=== PATIENT | female | born 1980 ===

== ENCOUNTER 2019-09-15 03:07 | Observation (INO) | payer OTHER ==
[2019-09-15 03:28] LABS: Bilirubin,Urine NEG (Negative); Blood,Urine NEG (Negative); Color,Urine Straw (Yellow); Mucus,Urine FEW /HPF; Protein,Urine <15 mg/dL mg/dL (Negative); Urobilinogen,Urine < 2.0 mg/dL (<2.0); WBC,Urine < 1.0 /HPF (0.0-6.0)
[2019-09-15 03:31] LABS: HCG Qualitative,Urine Negative (Negative)
[2019-09-15 04:05] LABS: Basophils # (Auto) 0.1 K/mm3 (0.0-0.1); Eosinophils # (Auto) 0.3 K/mm3 (0.0-0.4); Eosinophils % (Auto) 2.4 % (0.0-4.3); Lymphocytes # (Auto) 1.3 K/mm3 (1.2-5.4); Lymphocytes % (Auto) 10.9 % (13.4-35.0); Mean Corpuscular HGB Conc 28 % (30-34); Monocytes # (Auto) 0.5 K/mm3 (0.0-0.8); Monocytes % (Auto) 4.3 % (0.0-7.3); Platelet Count 430 K/mm3 (140-440); Red Blood Count 3.79 M/mm3 (3.65-5.03)
[2019-09-15 04:08] LABS: Hematocrit 21.9 % (30.3-42.9); Mean Corpuscular Volume 58 fl (79-97); Red Cell Distribution Width 23.8 % (13.2-15.2)
[2019-09-15 04:30] LABS: Alanine Aminotransferase 9 units/L (7-56); Albumin 4.5 g/dL (3.9-5); BUN/Creatinine Ratio 23; Blood Urea Nitrogen 7 mg/dL (7-17); Calcium 8.7 mg/dL (8.4-10.2); Hemolysis Index 0
[2019-09-15] MEDS ORDERED: ACETAMINOPHEN 325 MG TAB PO ONE (05:28)
[2019-09-15] MEDS ORDERED: ACETAMINOPHEN 325 MG TAB ONE (05:30)
[2019-09-15] MEDS ORDERED: SODIUM CHLORIDE 0.9% 1000 ML 1,000 ML IV ONE (07:30)
[2019-09-15] MEDS ORDERED: MORPHINE 4 MG/1 ML INJ IV ONE (07:35)
[2019-09-15] MEDS ORDERED: ONDANSETRON 4 MG/2 ML INJ IV ONE (07:35)
--- NOTE | 2019-09-15 07:37 | Event Note ---
ED Screening Note ED Screening Note: co diffuse abd pain moaning hx diverticulitis no home meds no etoh/cig/drugs no surgeries no pcp hgb 6 denies blood in stool lmp 2/15 preg neg This initial assessment/diagnostic orders/clinical plan/treatment(s) is/are subject to change based on patients health status, clinical progression and re- assessment by fellow clinical providers in the ED. Further treatment and workup at subsequent clinical providers discretion. Patient/guardian urged not to elope from the ED as their condition may be serious if not clinically assessed and managed. Initial orders include: 1L NS morphine/zofran CT Type stool for occult blood follow VS
[2019-09-15] MEDS ORDERED: SODIUM CHLORIDE 0.9% 500 ML 500 ML IV ONE (07:43)
--- NOTE | 2019-09-15 07:44 | Emergency Department Report ---
ED Abdominal Pain HPI - General Chief Complaint: Abdominal Pain Stated Complaint: ABD PAIN Time Seen by Provider: 09/15/19 07:13 Source: patient Mode of arrival: Ambulatory Limitations: No Limitations - History of Present Illness Severity scale (0 -10): 8 - Related Data Allergies Allergy/AdvReac Type Severity Reaction Status Date / Time No Known Allergies Allergy Unverified 09/15/19 03:13 ED Review of Systems ROS: Stated complaint: ABD PAIN Other details as noted in HPI ED Past Medical Hx - Past Medical History Previous Medical History?: No - Surgical History Past Surgical History?: No - Social History Smoking Status: Never Smoker Substance Use Type: None ED Physical Exam - General Limitations: No Limitations ED Course Vital Signs 09/15/19 03:10 Temperature 98.2 F Pulse Rate 83 Respiratory 18 Rate Blood Pressure 122/67 O2 Sat by Pulse 100 Oximetry ED Medical Decision Making - Lab Data Result diagrams: 09/15/19 03:28 09/15/19 03:28 Critical care attestation.: If time is entered above; I have spent that time in minutes in the direct care of this critically ill patient, excluding procedure time. ED Disposition Condition: Stable Instructions: Abdominal Pain (ED) Referrals: DULCE SANON MD [Primary Care Provider] - 3-5 Days
--- NOTE | 2019-09-15 07:46 | Event Note ---
Date: 09/15/19 no bed in main ER - 3 assignments closed pt to stay in [facility] for work up and blood transfusion per Charge Nurse
--- NOTE | 2019-09-15 09:17 | Cat Scan Report ---
CT ABDOMEN AND PELVIS WITHOUT CONTRAST HISTORY: Severe abdominal pain. COMPARISON: No relevant comparison imaging. TECHNIQUE: Routine abdominal and pelvic CT exam performed . All CT scans at this location are perform ed using CT dose reduction for ALARA by means of automated exposure control. FINDINGS: CT ABDOMEN: Lung Bases: No significant abnormality. Liver: No significant abnormality. Biliary: No significant abnormality. Spleen: No significant abnormality. Unenlarged. Pancreas: No significant abnormality. Adrenals: No significant abnormality. Kidneys: No significant abnormality. No urinary calculus. Lymphatics: No lymphadenopathy. Vasculature: No significant abnormality. Bowel/Peritoneum: Nonobstructive bowel pattern.Diverticulosis of the descending colon and proximal si gmoid colon. Stranding of the left mesocolon along with mild fluid in the left paracolic gutter and t hickening of the lateroconal fascia and the left renal fascia. The involved segment of colon measures at least 8 cm. No extraluminal air or abscess. No pneumoperitoneum. The appendix is normal. CT PELVIC: : An enlarged fibroid uterus measures approximately 16 cm in length by 10.5 cm AP dimension by 13.5 cm transverse dimension. There is suggestion of a 7-8 cm submucosal fibroid. The ovaries are normal. A 1.9 cm follicle of the left ovary. No adnexal mass or free fluid. Lymphatics: No lymphadenopathy. Osseous Structures: No aggressive appearing osseous lesions. Additional Findings: None IMPRESSION: 1. Acute diverticulitis involving the mid descending colon. No signs of perforation or abscess. 2. Enlarged fibroid uterus with a dominant 7 to 8 cm submucosal fibroid. Signer Name: Dez Metzger MD Signed: 09/15/2019 9:12 AM Workstation Name: [id number]
[2019-09-15] MEDS ORDERED: HYDROmorphone 1 MG/1 ML INJ IV STA (09:31)
[2019-09-15] MEDS ORDERED: SODIUM CHLORIDE 0.9% 1000 ML IV SOLN IV ONE (09:31)
[2019-09-15] MEDS ORDERED: levoFLOXacin 500 MG TAB PO ONE (09:36)
--- NOTE | 2019-09-15 09:36 | Emergency Department Report ---
ED General Adult HPI - General Chief complaint: Abdominal Pain Stated complaint: ABD PAIN Time Seen by Provider: 09/15/19 07:13 Source: patient, RN notes reviewed Mode of arrival: Stretcher Limitations: Language Barrier - History of Present Illness Initial comments: monitoring and evaluation advisor: [id number] The patient is a pleasant 39-year-old female. She is not known to myself previously. She reports a history of possible diverticulitis. She does not have a primary care doctor. She does not have a knuckle strap sewer. She presents to the ER with a complaint of nontraumatic left-sided abdominal pain. Her pain is sharp, and increases with palpation and decreases with rest. Positive chills, and bony aches. Patient fever. Mild headache. No neck pain. No vomiting. No chest pain. Positive shortness of breath. Positive dizziness. Positive lightheadedness. Positive heavy menstruation, chronically, although she is not menstruating currently. There is no complaint of hematemesis and/or bright red blood per rectum. -: Gradual, days(s) Location: abdomen Severity scale (0 -10): 7 Quality: other Consistency: other Improves with: other Worsens with: other Associated Symptoms: other - Related Data Allergies Allergy/AdvReac Type Severity Reaction Status Date / Time No Known Allergies Allergy Unverified 09/15/19 03:13 ED Review of Systems ROS: Stated complaint: ABD PAIN Other details as noted in HPI Constitutional: chills, malaise, weakness Respiratory: shortness of breath Cardiovascular: other Gastrointestinal: abdominal pain, diarrhea Genitourinary: abnormal menses. denies: dysuria Musculoskeletal: arthralgia, myalgia Neurological: weakness ED Past Medical Hx - Past Medical History Previous Medical History?: No - Surgical History Past Surgical History?: No - Social History Smoking Status: Never Smoker Substance Use Type: None ED Physical Exam - General Limitations: Language Barrier General appearance: alert, in no apparent distress - Head Head exam: Present: atraumatic, normocephalic - Eye Eye exam: Present: normal appearance, EOMI, other (Pallor of the bilateral conjunctiva are appreciated). Absent: nystagmus - ENT ENT exam: Present: normal exam, normal orophraynx, mucous membranes moist, normal external ear exam - Neck Neck exam: Present: normal inspection, full ROM. Absent: tenderness, meningismus - Respiratory Respiratory exam: Present: normal lung sounds bilaterally. Absent: respiratory distress - Cardiovascular Cardiovascular Exam: Present: regular rate, normal rhythm, normal heart sounds. Absent: bradycardia, tachycardia, irregular rhythm, systolic murmur, diastolic murmur, rubs, gallop - GI/Abdominal GI/Abdominal exam: Present: soft, tenderness, other (There is diffuse left-sided abdominal tenderness). Absent: distended, guarding, rebound, rigid, pulsatile mass - Extremities Exam Extremities exam: Present: normal inspection, full ROM, other (2+ pulses noted in the bilateral upper and lower extremities. There is no palpable cord. negative Homans sign. Muscular compartments are soft. The pelvis is stable.). Absent: pedal edema, calf tenderness - Back Exam Back exam: Present: normal inspection, CVA tenderness (R). Absent: tenderness, paraspinal tenderness, vertebral tenderness - Neurological Exam Neurological exam: Present: alert, other (There is no facial droop. The tongue is midline. The extraocular movements are intact bilaterally. There is 5 out of 5 strength in 4 extremities. Sensation is intact to light touch in 4 extremities) - Psychiatric Psychiatric exam: Present: anxious - Skin Skin exam: Present: warm, dry, intact, normal color. Absent: rash ED Course Vital Signs 09/15/19 09/15/19 09/15/19 03:10 08:57 09:00 Temperature 98.2 F Pulse Rate 83 83 Respiratory 18 22 28 H Rate Blood Pressure 122/67 117/61 Blood Pressure 110/64 [Left] O2 Sat by Pulse 100 100 Oximetry ED Medical Decision Making - Lab Data Result diagrams: 09/15/19 03:28 09/15/19 03:28 Vital Signs 09/15/19 09/15/19 09/15/19 03:10 08:57 09:00 Temperature 98.2 F Pulse Rate 83 83 Respiratory 18 22 28 H Rate Blood Pressure 122/67 117/61 Blood Pressure 110/64 [Left] O2 Sat by Pulse 100 100 Oximetry Lab Results 09/15/19 09/15/19 09/15/19 Range/Units 03:00 03:28 03:28 WBC 12.0 H (4.5-11.0) K/mm3 RBC 3.79 (3.65-5.03) M/mm3 Hgb 6.0 L (10.1-14.3) gm/dl Hct 21.9 L (30.3-42.9) % MCV 58 L (79-97) fl MCH 16 L (28-32) pg MCHC 28 L (30-34) % RDW 23.8 H (13.2-15.2) % Plt Count 430 (140-440) K/mm3 Lymph % (Auto) 10.9 L (13.4-35.0) % [place] % (Auto) 4.3 (0.0-7.3) % Eos % (Auto) 2.4 (0.0-4.3) % Baso % (Auto) 1.0 (0.0-1.8) % Lymph # 1.3 (1.2-5.4) K/mm3 [place] # 0.5 (0.0-0.8) K/mm3 Eos # 0.3 (0.0-0.4) K/mm3 Baso # 0.1 (0.0-0.1) K/mm3 Seg Neutrophils % 81.4 H (40.0-70.0) % Seg Neutrophils # 9.8 H (1.8-7.7) K/mm3 Sodium 138 (137-145) mmol/L Potassium 4.0 (3.6-5.0) mmol/L Chloride 102.7 (98-107) mmol/L Carbon Dioxide 20 L (22-30) mmol/L Anion Gap 19 mmol/L BUN 7 (7-17) mg/dL Creatinine 0.3 L (0.7-1.2) mg/dL Estimated GFR > 60 ml/min BUN/Creatinine Ratio 23 % Glucose 128 H (65-100) mg/dL Calcium 8.7 (8.4-10.2) mg/dL Magnesium (1.7-2.3) mg/dL Total Bilirubin 0.70 (0.1-1.2) mg/dL AST 15 (5-40) units/L ALT 9 (7-56) units/L Alkaline Phosphatase 83 (35-129) units/L Total Creatine Kinase (30-135) units/L Total Protein 7.2 (6.3-8.2) g/dL Albumin 4.5 (3.9-5) g/dL Albumin/Globulin Ratio 1.7 % Urine Color Straw (Yellow) Urine Turbidity Clear (Clear) Urine pH 6.0 (5.0-7.0) Ur Specific [place] 1.011 (1.003-1.030) Urine Protein <15 mg/dl (Negative) mg/dL Urine Glucose (UA) Neg (Negative) mg/dL Urine Ketones Neg (Negative) mg/dL Urine Blood Neg (Negative) Urine Nitrite Neg (Negative) Urine Bilirubin Neg (Negative) Urine Urobilinogen < 2.0 (<2.0) mg/dL Ur Leukocyte Esterase Neg (Negative) Urine WBC (Auto) < 1.0 (0.0-6.0) /HPF Urine RBC (Auto) 1.0 (0.0-6.0) /HPF U Epithel Cells (Auto) 1.0 (0-13.0) /HPF Urine Mucus Few /HPF Urine HCG, Qual Negative (Negative) Blood Type Antibody Screen Crossmatch 09/15/19 09/15/19 Range/Units 08:00 09:36 WBC (4.5-11.0) K/mm3 RBC (3.65-5.03) M/mm3 Hgb (10.1-14.3) gm/dl Hct (30.3-42.9) % MCV (79-97) fl MCH (28-32) pg MCHC (30-34) % RDW (13.2-15.2) % Plt Count (140-440) K/mm3 Lymph % (Auto) (13.4-35.0) % [place] % (Auto) (0.0-7.3) % Eos % (Auto) (0.0-4.3) % Baso % (Auto) (0.0-1.8) % Lymph # (1.2-5.4) K/mm3 [place] # (0.0-0.8) K/mm3 Eos # (0.0-0.4) K/mm3 Baso # (0.0-0.1) K/mm3 Seg Neutrophils % (40.0-70.0) % Seg Neutrophils # (1.8-7.7) K/mm3 Sodium (137-145) mmol/L Potassium (3.6-5.0) mmol/L Chloride (98-107) mmol/L Carbon Dioxide (22-30) mmol/L Anion Gap mmol/L BUN (7-17) mg/dL Creatinine (0.7-1.2) mg/dL Estimated GFR ml/min BUN/Creatinine Ratio % Glucose (65-100) mg/dL Calcium (8.4-10.2) mg/dL Magnesium 2.20 (1.7-2.3) mg/dL Total Bilirubin (0.1-1.2) mg/dL AST (5-40) units/L ALT (7-56) units/L Alkaline Phosphatase (35-129) units/L Total Creatine Kinase 23 L (30-135) units/L Total Protein (6.3-8.2) g/dL Albumin (3.9-5) g/dL Albumin/Globulin Ratio % Urine Color (Yellow) Urine Turbidity (Clear) Urine pH (5.0-7.0) Ur Specific [place] (1.003-1.030) Urine Protein (Negative) mg/dL Urine Glucose (UA) (Negative) mg/dL Urine Ketones (Negative) mg/dL Urine Blood (Negative) Urine Nitrite (Negative) Urine Bilirubin (Negative) Urine Urobilinogen (<2.0) mg/dL Ur Leukocyte Esterase (Negative) Urine WBC (Auto) (0.0-6.0) /HPF Urine RBC (Auto) (0.0-6.0) /HPF U Epithel Cells (Auto) (0-13.0) /HPF Urine Mucus /HPF Urine HCG, Qual (Negative) Blood Type O POSITIVE Antibody Screen Negative Crossmatch See Detail - EKG Data -: EKG Interpreted by Ca EKG shows normal: sinus rhythm Rate: normal - EKG Data When compared to previous EKG there are: previous EKG unavailable 09/15/19 10:06 Sinus rhythm, 86 bpm, left axis deviation, left anterior fascicular block, low voltage, motion artifact, QTC 445 ms. No prior for comparison. Not a STEMI. - Radiology Data Radiology results: report reviewed, image reviewed Print Report Referring Physician: AUSTIN BROWN Patient Name: JOANNE GALLOWAY Date of : 1980 Sex: Female Report Date: 2019-09-15 Report Status: Finalized Findings [facility] [address] [place] [address] Cat Scan Report Signed Patient: JOANNE GALLOWAY MR#: [id number] : 1980 Acct:[id number] Age/Sex: 39 / F ADM Date: 09/15/19 Loc: ED Attending Dr: Ordering Physician: AUSTIN BROWN Date of Service: 09/15/19 Procedure(s): CT abdomen pelvis wo con Accession Number(s): [id number] cc: AUSTIN BROWN CT ABDOMEN AND PELVIS WITHOUT CONTRAST HISTORY: Severe abdominal pain. COMPARISON: No relevant comparison imaging. TECHNIQUE: Routine abdominal and pelvic CT exam performed . All CT scans at this location are performed using CT dose reduction for ALARA by means of automated exposure control. FINDINGS: CT ABDOMEN: Lung Bases: No significant abnormality. Liver: No significant abnormality. Biliary: No significant abnormality. Spleen: No significant abnormality. Unenlarged. Pancreas: No significant abnormality. Adre nals: No significant abnormality. Kidneys: No significant abnormality. No urinary calculus. Lymphatics: No lymphadenopathy. Vasculature: No significant abnormality. Bowel/Peritoneum: Nonobstructive bowel pattern.Diverticulosis of the descending colon and proximal sigmoid colon. Stranding of the left mesocolon along with mild fluid in the left paracolic gutter and thickening of the lateroconal fascia and the left renal fascia. The involved segment of colon measures at least 8 cm. No extraluminal air or abscess. No pneumoperitoneum. The appendix is normal. CT PELVIC: : An enlarged fibroid uterus measures approximately 16 cm in length by 10.5 cm AP dimension by 13.5 cm transverse dimension. There is suggestion of a 7-8 cm submucosal fibroid. The ovaries are normal. A 1.9 cm follicle of the left ovary. No adnexal mass or free fluid. Lymphatics: No lymphadenopathy. Osseous Structures: No aggressive appearing osseous lesions. Additional Findings: None IMPRESSION: 1. Acute diverticulitis involving the mid descending colon. No signs of perforation or abscess. 2. Enlarged fibroid uterus with a dominant 7 to 8 cm submucosal fibroid. Signer Name: Christopher Dunn MD Signed: 09/15/2019 9:12 AM Workstation Name: [id number] Transcribed By: REF Dictated By: CHRISTOPHER DUNN MD Electronically Authenticated By: CHRISTOPHER DUNN MD Signed Date/Time: 09/15/19911 DD/ - Medical Decision Making Differential diagnosis, including but not limited to: Diverticulitis, urinary tract infection, perforated viscus, fibroids, symptomatic anemia Assessment and plan: 39-year-old female with heart rate greater than 90, white count of 12,000, tachypnea, CT scan abdomen pelvis showing uncomplicated diverticulitis, very tender, meets sepsis criteria. IV fluids, pain medication, antibiotics ordered. Also endorses secondary complaint of heavy menstruation, now resolved, not actively bleeding, found to have impressive microcytic anemia, which is symptomatic. Discussed these results with patient using a [place] monitoring and evaluation advisor. Patient is amenable to IV fluids, antibiotics, and packed red blood cell transfusion. She is amenable to hospitalization. Case is presented to hospital physician, and Dr. Edgard Mccray to admit Critical Care Time: Yes Critical care time in (mins) excluding proc time.: 35 Critical care attestation.: If time is entered above; I have spent that time in minutes in the direct care of this critically ill patient, excluding procedure time. ED Disposition Clinical Impression: SIRS (systemic inflammatory response syndrome), Symptomatic anemia, Acute abdominal pain Disposition: OP ADMIT IP TO THIS HOSP Is pt being admited?: Yes Condition: Serious Instructions: Abdominal Pain (ED) Referrals: DULCE SANON MD [Primary Care Provider] - 3-5 Days
[2019-09-15] MEDS: metroNIDAZOLE/NS 500 MG/100 ML 500 MG/100 ML BAG IV SCH ×4 (10:05→21:47)
[2019-09-15] MEDS ORDERED: SODIUM CHLORIDE 0.9% 500 ML 500 ML IV NR (10:31)
[2019-09-15] MEDS ORDERED: SODIUM CHLORIDE 0.9% 1000 ML 1,000 ML ONE (11:10)
[2019-09-15] MEDS ORDERED: SODIUM CHLORIDE 0.9% 500 ML 500 ML ONE (11:41)
--- NOTE | 2019-09-15 12:56 | History and Physical Report ---
History of Present Illness Date of examination: 09/15/19 Date of admission: 09/15/19 09:32 Chief complaint: LLQ abd pain History of present illness: Patient is 39-year-old with history of anemia and heavy menstrual bleeding. She presents with left lower abdominal pain for 2 days. Abdominal pain is dull, 8 out of 10 in intensity, located to left lower quadrant with no radiation. Patient denies nausea denies vomiting. She however complained of diarrhea with 3-4 stools daily over the past 2 days. Patient denies fever. Abdominal pain was getting worse therefore came to the emergency department for further evaluation. She was seen and evaluated in the Emergency Department. CT abdomen and pelvis done revealed acute diverticulitis. She was started on IV antibiotics. She was also found to have a hemoglobin of 6.0 and will be transfused PRBC. She denies any blood in the stool. She however states she has had heavy menstrual for many years. Will admit for further management. Past History Past Medical History: anemia Past Surgical History: No surgical history Social history: single, full code. denies: smoking, alcohol abuse Family history: no significant family history Medications and Allergies Allergies Allergy/AdvReac Type Severity Reaction Status Date / Time No Known Allergies Allergy Unverified 09/15/19 03:13 Active Meds: Active Medications Metronidazole (Flagyl 500 Mg/100 Ml) 500 mg in 100 mls @ 100 mls/hr IV NOW GILA; Protocol Last Admin: 09/15/19 10:27 Dose: 100 mls/hr Documented by: Dextrose/Sodium Chloride (D5/0.45ns) 1,000 mls @ 75 mls/hr IV DIRECT GILA Sodium Chloride (Nacl 0.9% 500 Ml) 500 mls @ 0 mls/hr IV ONCE NR Stop: 09/16/19 10:30 Review of Systems All systems: negative (No fever, no cough, no headache. All other systems reviewed and are negative) Exam - Physical Exam Narrative exam: GEN: Not in acute distress, lying in bed, HEENT: Normocephalic, atraumatic, Neck: supple, No JVD Lungs: Clear to auscultation ,no wheeze, heart;S1 and S2 reg, no murmurs, rubs or gallop Abd:soft, tender LLQ, no rebound tenderness, non distended, normal bowel sounds Ext: No edema, no clubbing, no cyanosis Neuro: Awake,alert, oriented X 3, moves all ext, no focal signs - Constitutional Vitals: Temp Pulse Resp BP Pulse Ox 99.8 F H 85 21 106/57 100 09/15/19 12:03 09/15/19 12:03 09/15/19 12:03 09/15/19 12:03 09/15/19 12:03 Results - Labs CBC & Chem 7: 09/16/19 05:13 09/16/19 05:13 Labs: Abnormal lab results 09/15/19 09/15/19 09/15/19 Range/Units 03:28 03:28 08:00 WBC 12.0 H (4.5-11.0) K/mm3 Hgb 6.0 L (10.1-14.3) gm/dl Hct 21.9 L (30.3-42.9) % MCV 58 L (79-97) fl MCH 16 L (28-32) pg MCHC 28 L (30-34) % RDW 23.8 H (13.2-15.2) % Lymph % (Auto) 10.9 L (13.4-35.0) % Seg Neutrophils % 81.4 H (40.0-70.0) % Seg Neutrophils # 9.8 H (1.8-7.7) K/mm3 Carbon Dioxide 20 L (22-30) mmol/L Creatinine 0.3 L (0.7-1.2) mg/dL Glucose 128 H (65-100) mg/dL Lactic Acid (0.7-2.0) mmol/L Total Creatine Kinase (30-135) units/L Crossmatch See Detail 09/15/19 09/15/19 Range/Units 09:36 10:13 WBC (4.5-11.0) K/mm3 Hgb (10.1-14.3) gm/dl Hct (30.3-42.9) % MCV (79-97) fl MCH (28-32) pg MCHC (30-34) % RDW (13.2-15.2) % Lymph % (Auto) (13.4-35.0) % Seg Neutrophils % (40.0-70.0) % Seg Neutrophils # (1.8-7.7) K/mm3 Carbon Dioxide (22-30) mmol/L Creatinine (0.7-1.2) mg/dL Glucose (65-100) mg/dL Lactic Acid 2.50 H* (0.7-2.0) mmol/L Total Creatine Kinase 23 L (30-135) units/L Crossmatch Assessment and Plan Acute diverticulitis Admit to med/surg NPO Start iv fluid Levaquin and Flagyl iv Consult GI Anemia due to chronic blood loss from menorrhagia Transfuse 2 units I discussed with with her importance of following up with gynecology as an outpatient Full code status.
[2019-09-15] MEDS ORDERED: ONDANSETRON 4 MG/2 ML INJ IV PRN (12:57)
--- NOTE | 2019-09-15 13:32 | Gastroenterology Consultation ---
<ANITA MATSON - Last Filed: 09/15/19 13:51> History of Present Illness - Reason for Consult Consult date: 09/15/19 acute diverticulitis, anemia Requesting physician: YVETTE OWENS - History of Present Illness Patient is a 39 y/o female with no significant PMH who presented to ED with c/o acute onset of left-sided abdominal pain. Upon admission, she was found to have anemia, along with abd CT showing uterine fibroid and acute diverticulitis (uncomplicated w/o perforation or abscess) to which GI has been consulted. This afternoon patient was resting in bed w/o acute distress receiving a blood transfusion. Reports LLQ abd pain is starting to improve. Admits to fever but denies CP, SOB, wt loss, N/V, diarrhea or constipation. No signs of GI bleeding such as hematemesis, melena, or hematochezia. Last BM yesterday with brown stool per patient. Has been taking NSAIDs at home over the past couple of days for pain but no chronic use. No hx of GI bleeding, PUD, or IBD. Has heavy menstrual cycles. No prior colonoscopy. Family hx of colon cancer with uncle. Past History Past Medical History: No medical history Past Surgical History: No surgical history Social history: denies: smoking, alcohol abuse Family history: other (uncle with colon CA) Medications and Allergies Allergies Allergy/AdvReac Type Severity Reaction Status Date / Time No Known Allergies Allergy Unverified 09/15/19 03:13 Active Meds: Active Medications Acetaminophen (Tylenol) 650 mg PO Q4H PRN PRN Reason: Pain MILD(1-3)/Fever >100.5/MARTINS Dextrose/Sodium Chloride (D5/0.45ns) 1,000 mls @ 75 mls/hr IV DIRECT GILA Sodium Chloride (Nacl 0.9% 500 Ml) 500 mls @ 0 mls/hr IV ONCE NR Stop: 09/16/19 10:30 Metronidazole (Flagyl 500 Mg/100 Ml) 500 mg in 100 mls @ 100 mls/hr IV Q8HR GILA; Protocol Levofloxacin/Dextrose (Levaquin 500mg/100ml) 500 mg in 100 mls @ 100 mls/hr IV Q24HR GILA; Protocol Morphine Sulfate (Morphine) 2 mg IV Q4H PRN PRN Reason: Pain, Moderate (4-6) Ondansetron HCl (Zofran) 4 mg IV Q8H PRN PRN Reason: Nausea And Vomiting Sodium Chloride (Sodium Chloride Flush Syringe 10 Ml) 10 ml IV BID GILA Sodium Chloride (Sodium Chloride Flush Syringe 10 Ml) 10 ml IV PRN PRN PRN Reason: LINE FLUSH medications reviewed/updated as required Review of Systems - Review of Systems All systems: negative Gastrointestinal: abdominal pain (LLQ) Exam - Constitutional Vital Signs: Temp Pulse Resp BP Pulse Ox 99.8 F H 85 21 106/57 100 09/15/19 12:03 09/15/19 12:03 09/15/19 12:03 09/15/19 12:03 09/15/19 12:03 General appearance: no acute distress - EENT Eyes: PERRL, EOM intact ENT: hearing intact - Neck Neck: supple - Respiratory Respiratory effort: normal Respiratory: bilateral: CTA - Cardiovascular Rhythm: regular - Gastrointestinal General gastrointestinal: Present: soft, tender (LLQ), non-distended, normal bowel sounds - Integumentary Integumentary: Present: warm - Neurologic Neurological: alert and oriented x3 - Labs CBC & Chem 7: 09/15/19 03:28 09/15/19 03:28 Lab Results: Laboratory Results - last 24 hr 09/15/19 09/15/19 09/15/19 03:00 03:28 03:28 WBC 12.0 H RBC 3.79 Hgb 6.0 L Hct 21.9 L MCV 58 L MCH 16 L MCHC 28 L RDW 23.8 H Plt Count 430 Lymph % (Auto) 10.9 L [place] % (Auto) 4.3 Eos % (Auto) 2.4 Baso % (Auto) 1.0 Lymph # 1.3 [place] # 0.5 Eos # 0.3 Baso # 0.1 Seg Neutrophils % 81.4 H Seg Neutrophils # 9.8 H Sodium 138 Potassium 4.0 Chloride 102.7 Carbon Dioxide 20 L Anion Gap 19 BUN 7 Creatinine 0.3 L Estimated GFR > 60 BUN/Creatinine Ratio 23 Glucose 128 H Lactic Acid Calcium 8.7 Magnesium Total Bilirubin 0.70 AST 15 ALT 9 Alkaline Phosphatase 83 Total Creatine Kinase Total Protein 7.2 Albumin 4.5 Albumin/Globulin Ratio 1.7 Urine Color Straw Urine Turbidity Clear Urine pH 6.0 Ur Specific [place] 1.011 Urine Protein <15 mg/dl Urine Glucose (UA) Neg Urine Ketones Neg Urine Blood Neg Urine Nitrite Neg Urine Bilirubin Neg Urine Urobilinogen < 2.0 Ur Leukocyte Esterase Neg Urine WBC (Auto) < 1.0 Urine RBC (Auto) 1.0 U Epithel Cells (Auto) 1.0 Urine Mucus Few Urine HCG, Qual Negative Blood Type Antibody Screen Crossmatch 09/15/19 09/15/19 09/15/19 08:00 09:36 10:13 WBC RBC Hgb Hct MCV MCH MCHC RDW Plt Count Lymph % (Auto) [place] % (Auto) Eos % (Auto) Baso % (Auto) Lymph # [place] # Eos # Baso # Seg Neutrophils % Seg Neutrophils # Sodium Potassium Chloride Carbon Dioxide Anion Gap BUN Creatinine Estimated GFR BUN/Creatinine Ratio Glucose Lactic Acid 2.50 H* Calcium Magnesium 2.20 Total Bilirubin AST ALT Alkaline Phosphatase Total Creatine Kinase 23 L Total Protein Albumin Albumin/Globulin Ratio Urine Color Urine Turbidity Urine pH Ur Specific [place] Urine Protein Urine Glucose (UA) Urine Ketones Urine Blood Urine Nitrite Urine Bilirubin Urine Urobilinogen Ur Leukocyte Esterase Urine WBC (Auto) Urine RBC (Auto) U Epithel Cells (Auto) Urine Mucus Urine HCG, Qual Blood Type O POSITIVE Antibody Screen Negative Crossmatch See Detail Assessment and Plan 1.acute diverticulitis-uncomplicated -temp 99.8 -WBC 12 -abd CT showed acute diverticulitis involving the mid descending colon w/o signs of perforation or abscess -continue antibiotics (levaquin/flagyl) -start on trial of clears-advance as tolerated -continue supportive care -patient will need colonoscopy as outpatient in a few weeks for further evaluation (r/o neoplasm) once acute process has resolved 2.anemia-microcytic -H/H 6.0/21.9- 1 unit PRBCs transfusing -continue to monitor H/H and transfuse as needed -no active signs of GI bleeding -etiology- most likely due to menorrhagia 2/2 uterine fibroid seen on CT -no plan for scope at this time unless overt bleeding develops -consider PETS SALESPERSON consult -daily PPI -recommend EGD with outpatient colonoscopy as above for further evaluation of anemia to r/o GI pathology -continue supportive care -will follow <AMERICA ROMERO - Last Filed: 09/15/19 15:33> Medications and Allergies Active Meds: Active Medications Acetaminophen (Tylenol) 650 mg PO Q4H PRN PRN Reason: Pain MILD(1-3)/Fever >100.5/MARTINS Last Admin: 09/15/19 15:25 Dose: 650 mg Documented by: Dextrose/Sodium Chloride (D5/0.45ns) 1,000 mls @ 75 mls/hr IV DIRECT GILA Last Admin: 09/15/19 14:59 Dose: 75 mls/hr Documented by: Sodium Chloride (Nacl 0.9% 500 Ml) 500 mls @ 0 mls/hr IV ONCE NR Stop: 09/16/19 10:30 Metronidazole (Flagyl 500 Mg/100 Ml) 500 mg in 100 mls @ 100 mls/hr IV Q8HR GILA; Protocol Last Admin: 09/15/19 15:02 Dose: 100 mls/hr Documented by: Levofloxacin/Dextrose (Levaquin 500mg/100ml) 500 mg in 100 mls @ 100 mls/hr IV Q24HR GILA; Protocol Morphine Sulfate (Morphine) 2 mg IV Q4H PRN PRN Reason: Pain, Moderate (4-6) Last Admin: 09/15/19 13:39 Dose: 2 mg Documented by: Ondansetron HCl (Zofran) 4 mg IV Q8H PRN PRN Reason: Nausea And Vomiting Pantoprazole Sodium (Protonix) 40 mg PO QDAY [facility] Last Admin: 09/15/19 15:02 Dose: 40 mg Documented by: Sodium Chloride (Sodium Chloride Flush Syringe 10 Ml) 10 ml IV BID GILA Sodium Chloride (Sodium Chloride Flush Syringe 10 Ml) 10 ml IV PRN PRN PRN Reason: LINE FLUSH Exam - Constitutional Vital Signs: Temp Pulse Resp BP Pulse Ox 99.8 F H 85 21 106/57 100 09/15/19 12:03 09/15/19 12:03 09/15/19 12:03 09/15/19 12:03 09/15/19 12:03 - Labs CBC & Chem 7: 09/15/19 03:28 09/15/19 03:28 Lab Results: Laboratory Results - last 24 hr 09/15/19 09/15/19 09/15/19 03:00 03:28 03:28 WBC 12.0 H RBC 3.79 Hgb 6.0 L Hct 21.9 L MCV 58 L MCH 16 L MCHC 28 L RDW 23.8 H Plt Count 430 Lymph % (Auto) 10.9 L [place] % (Auto) 4.3 Eos % (Auto) 2.4 Baso % (Auto) 1.0 Lymph # 1.3 [place] # 0.5 Eos # 0.3 Baso # 0.1 Seg Neutrophils % 81.4 H Seg Neutrophils # 9.8 H Sodium 138 Potassium 4.0 Chloride 102.7 Carbon Dioxide 20 L Anion Gap 19 BUN 7 Creatinine 0.3 L Estimated GFR > 60 BUN/Creatinine Ratio 23 Glucose 128 H Lactic Acid Calcium 8.7 Magnesium Total Bilirubin 0.70 AST 15 ALT 9 Alkaline Phosphatase 83 Total Creatine Kinase Total Protein 7.2 Albumin 4.5 Albumin/Globulin Ratio 1.7 Urine Color Straw Urine Turbidity Clear Urine pH 6.0 Ur Specific [place] 1.011 Urine Protein <15 mg/dl Urine Glucose (UA) Neg Urine Ketones Neg Urine Blood Neg Urine Nitrite Neg Urine Bilirubin Neg Urine Urobilinogen < 2.0 Ur Leukocyte Esterase Neg Urine WBC (Auto) < 1.0 Urine RBC (Auto) 1.0 U Epithel Cells (Auto) 1.0 Urine Mucus Few Urine HCG, Qual Negative Blood Type Antibody Screen Crossmatch 09/15/19 09/15/19 09/15/19 08:00 09:36 10:13 WBC RBC Hgb Hct MCV MCH MCHC RDW Plt Count Lymph % (Auto) [place] % (Auto) Eos % (Auto) Baso % (Auto) Lymph # [place] # Eos # Baso # Seg Neutrophils % Seg Neutrophils # Sodium Potassium Chloride Carbon Dioxide Anion Gap BUN Creatinine Estimated GFR BUN/Creatinine Ratio Glucose Lactic Acid 2.50 H* Calcium Magnesium 2.20 Total Bilirubin AST ALT Alkaline Phosphatase Total Creatine Kinase 23 L Total Protein Albumin Albumin/Globulin Ratio Urine Color Urine Turbidity Urine pH Ur Specific [place] Urine Protein Urine Glucose (UA) Urine Ketones Urine Blood Urine Nitrite Urine Bilirubin Urine Urobilinogen Ur Leukocyte Esterase Urine WBC (Auto) Urine RBC (Auto) U Epithel Cells (Auto) Urine Mucus Urine HCG, Qual Blood Type O POSITIVE Antibody Screen Negative Crossmatch See Detail 09/15/19 13:11 WBC RBC Hgb Hct MCV MCH MCHC RDW Plt Count Lymph % (Auto) [place] % (Auto) Eos % (Auto) Baso % (Auto) Lymph # [place] # Eos # Baso # Seg Neutrophils % Seg Neutrophils # Sodium Potassium Chloride Carbon Dioxide Anion Gap BUN Creatinine Estimated GFR BUN/Creatinine Ratio Glucose Lactic Acid 2.80 H* Calcium Magnesium Total Bilirubin AST ALT Alkaline Phosphatase Total Creatine Kinase Total Protein Albumin Albumin/Globulin Ratio Urine Color Urine Turbidity Urine pH Ur Specific [place] Urine Protein Urine Glucose (UA) Urine Ketones Urine Blood Urine Nitrite Urine Bilirubin Urine Urobilinogen Ur Leukocyte Esterase Urine WBC (Auto) Urine RBC (Auto) U Epithel Cells (Auto) Urine Mucus Urine HCG, Qual Blood Type Antibody Screen Crossmatch Assessment and Plan I have reviewed the advanced practitioner's evaluation, assessment, and plan, a nd agree with the assessment and plan. I note the following notes/additions: Continue supportive care and antibiotics, and patient will require outpatient endoscopic evaluation once the diverticulitis is resolved America Romero M.D. - Patient Problems (1) Acute abdominal pain Current Visit: Yes Status: Acute (2) Diverticulitis Current Visit: Yes Status: Acute
[2019-09-15] MEDS: MORPHINE 2 MG/1 ML INJ IV PRN ×4 (13:39→21:54)
[2019-09-15] MEDS: D5W/0.45% NACL 1,000 ML IV SCH (14:59)
[2019-09-15] MEDS: PANTOPRAZOLE 40 MG TAB PO SCH (15:02)
[2019-09-15] MEDS: ACETAMINOPHEN 325 MG TAB PO PRN (15:25)
[2019-09-16] MEDS: MORPHINE 2 MG/1 ML INJ IV PRN ×2 (06:22→09:46)
[2019-09-16] MEDS: metroNIDAZOLE/NS 500 MG/100 ML 500 MG/100 ML BAG IV SCH ×3 (06:22→22:13)
[2019-09-16] MEDS: D5W/0.45% NACL 1,000 ML IV SCH (06:26)
[2019-09-16 06:49] LABS: Hematocrit 21.1 % (30.3-42.9); Hemoglobin 6.4 gm/dl (10.1-14.3); Mean Corpuscular HGB Conc 30 % (30-34); Platelet Count 373 K/mm3 (140-440); Red Blood Count 3.55 M/mm3 (3.65-5.03)
[2019-09-16 06:54] LABS: Mean Corpuscular Volume 59 fl (79-97); Red Cell Distribution Width 26.7 % (13.2-15.2)
[2019-09-16 07:06] LABS: BUN/Creatinine Ratio 13; Blood Urea Nitrogen 4 mg/dL (7-17); Calcium 8.2 mg/dL (8.4-10.2); Hemolysis Index 1
[2019-09-16 08:54] LABS: Basophils % (Manual) 0 % (0.0-1.8); Monocytes % (Manual) 0 % (0.0-7.3); Total Cells Counted 100
[2019-09-16 08:55] LABS: Anisocytosis 3+; Hypochromasia 3+; Tear Drop Cells 1+
[2019-09-16 09:18] LABS: Platelet Estimate Consistent w Auto
[2019-09-16] MEDS: PANTOPRAZOLE 40 MG TAB PO SCH (09:31)
--- NOTE | 2019-09-16 10:05 | Gastroenterology Progress Note ---
<ANITA MATSON - Last Filed: 09/16/19 11:15> Assessment and Plan 1.acute diverticulitis-uncomplicated -afebrile -WBC now WNL -abd CT showed acute diverticulitis involving the mid descending colon w/o signs of perforation or abscess -continue antibiotics (levaquin/flagyl)-transition to PO once tolerating diet -advance diet as tolerated -continue supportive care -recommend patient have an outpatient colonoscopy in a few weeks for further evaluation (r/o neoplasm) once acute process has resolved 2.anemia-microcytic -H/H 6.4/21.1- second unit PRBCs pending transfusing -continue to monitor H/H and transfuse as needed -no active signs of GI bleeding -etiology- most likely due to menorrhagia 2/2 uterine fibroid seen on CT -no plan for scope at this time unless overt bleeding develops -consider EQUIPMENT INSPECTOR consult -daily PPI -recommend EGD with outpatient colonoscopy as above for further evaluation of anemia to r/o GI pathology -continue supportive care -if H/H stable in am and tolerating diet, okay to be d/c home on antibiotics with f/u in clinic in ~2 weeks Subjective Date of service: 09/16/19 Principal diagnosis: diverticulitis, anemia Interval history: No acute distress. Reports abd pain continuing to improve. No N/V or signs of bleeding. Tolerating clears. Objective - Constitutional Vitals: Temp Pulse Resp BP Pulse Ox 98.2 F 81 20 94/52 98 09/16/19 05:43 09/16/19 05:33 09/16/19 09:46 09/16/19 05:33 09/16/19 05:33 General appearance: no acute distress - EENT Eyes: PERRL, EOM intact ENT: hearing intact - Respiratory Respiratory effort: normal Respiratory: bilateral: CTA - Cardiovascular Rhythm: regular - Gastrointestinal General gastrointestinal: Present: soft, tender (slight (LLQ)), non-distended, normal bowel sounds - Integumentary Integumentary: Present: warm, dry - Neurologic Neurological: alert and oriented x3 - Labs CBC & Chem 7: 09/16/19 05:13 09/16/19 05:13 Labs: Laboratory Results - last 24 hr 09/15/19 09/15/19 09/15/19 08:00 09:36 10:13 WBC RBC Hgb Hct MCV MCH MCHC RDW Plt Count Add Manual Diff Total Counted Seg Neuts % (Manual) Band Neutrophils % Lymphocytes % (Manual) Reactive Lymphs % (Man) Monocytes % (Manual) Eosinophils % (Manual) Basophils % (Manual) Metamyelocytes % Myelocytes % Promyelocytes % Blast Cells % Nucleated RBC % Seg Neutrophils # Man Band Neutrophils # Lymphocytes # (Manual) Abs React Lymphs (Man) Monocytes # (Manual) Eosinophils # (Manual) Basophils # (Manual) Metamyelocytes # Myelocytes # Promyelocytes # Blast Cells # WBC Morphology Hypersegmented Neuts Hyposegmented Neuts Hypogranular Neuts Smudge Cells Toxic Granulation Toxic Vacuolation Dohle Bodies Pelger-Huet Anomaly Ginny Rods Platelet Estimate Clumped Platelets Plt Clumps, EDTA Large Platelets Giant Platelets Platelet Satelliting Plt Morphology Comment RBC Morphology Dimorphic RBCs Polychromasia Hypochromasia Poikilocytosis Anisocytosis Microcytosis Macrocytosis Spherocytes Pappenheimer Bodies Sickle Cells Target Cells Tear Drop Cells Ovalocytes Helmet Cells [place] Bodies [place] Rings Mendy Cells Bite Cells Crenated Cell Elliptocytes Acanthocytes (Spur) Rouleaux Hemoglobin C Crystals Schistocytes Malaria parasites Robby Bodies Hem Pathologist Commnt Sodium Potassium Chloride Carbon Dioxide Anion Gap BUN Creatinine Estimated GFR BUN/Creatinine Ratio Glucose Lactic Acid 2.50 H* Calcium Magnesium 2.20 Total Creatine Kinase 23 L Blood Type O POSITIVE Antibody Screen Negative Crossmatch See Detail 09/15/19 09/15/19 09/16/19 13:11 15:19 05:13 WBC 8.4 RBC 3.55 L Hgb 6.4 L Hct 21.1 L MCV 59 L MCH 18 L MCHC 30 RDW 26.7 H Plt Count 373 Add Manual Diff Complete Total Counted 100 Seg Neuts % (Manual) 88.0 H Band Neutrophils % 0 Lymphocytes % (Manual) 9.0 L Reactive Lymphs % (Man) 0 Monocytes % (Manual) 0 Eosinophils % (Manual) 3.0 Basophils % (Manual) 0 Metamyelocytes % 0 Myelocytes % 0 Promyelocytes % 0 Blast Cells % 0 Nucleated RBC % 2.0 H Seg Neutrophils # Man 7.4 Band Neutrophils # 0.0 Lymphocytes # (Manual) 0.8 L Abs React Lymphs (Man) 0.0 Monocytes # (Manual) 0.0 Eosinophils # (Manual) 0.3 Basophils # (Manual) 0.0 Metamyelocytes # 0.0 Myelocytes # 0.0 Promyelocytes # 0.0 Blast Cells # 0.0 WBC Morphology Not Reportable Hypersegmented Neuts Not Reportable Hyposegmented Neuts Not Reportable Hypogranular Neuts Not Reportable Smudge Cells Not Reportable Toxic Granulation Not Reportable Toxic Vacuolation Not Reportable Dohle Bodies Not Reportable Pelger-Huet Anomaly Not Reportable Ginny Rods Not Reportable Platelet Estimate Consistent w auto Clumped Platelets Not Reportable Plt Clumps, EDTA Not Reportable Large Platelets Not Reportable Giant Platelets Not Reportable Platelet Satelliting Not Reportable Plt Morphology Comment Not Reportable RBC Morphology Not Reportable Dimorphic RBCs Not Reportable Polychromasia Not Reportable Hypochromasia 3+ Poikilocytosis Not Reportable Anisocytosis 3+ Microcytosis 2+ Macrocytosis Not Reportable Spherocytes Not Reportable Pappenheimer Bodies Not Reportable Sickle Cells Not Reportable Target Cells Not Reportable Tear Drop Cells 1+ Ovalocytes Not Reportable Helmet Cells Not Reportable [place] Bodies Not Reportable [place] Rings Not Reportable Mendy Cells Not Reportable Bite Cells Not Reportable Crenated Cell Not Reportable Elliptocytes Few Acanthocytes (Spur) Not Reportable Rouleaux Not Reportable Hemoglobin C Crystals Not Reportable Schistocytes Not Reportable Malaria parasites Not Reportable Robby Bodies Not Reportable Hem Pathologist Commnt No Sodium Potassium Chloride Carbon Dioxide Anion Gap BUN Creatinine Estimated GFR BUN/Creatinine Ratio Glucose Lactic Acid 2.80 H* 2.00 Calcium Magnesium Total Creatine Kinase Blood Type Antibody Screen Crossmatch 09/16/19 05:13 WBC RBC Hgb Hct MCV MCH MCHC RDW Plt Count Add Manual Diff Total Counted Seg Neuts % (Manual) Band Neutrophils % Lymphocytes % (Manual) Reactive Lymphs % (Man) Monocytes % (Manual) Eosinophils % (Manual) Basophils % (Manual) Metamyelocytes % Myelocytes % Promyelocytes % Blast Cells % Nucleated RBC % Seg Neutrophils # Man Band Neutrophils # Lymphocytes # (Manual) Abs React Lymphs (Man) Monocytes # (Manual) Eosinophils # (Manual) Basophils # (Manual) Metamyelocytes # Myelocytes # Promyelocytes # Blast Cells # WBC Morphology Hypersegmented Neuts Hyposegmented Neuts Hypogranular Neuts Smudge Cells Toxic Granulation Toxic Vacuolation Dohle Bodies Pelger-Huet Anomaly Ginny Rods Platelet Estimate Clumped Platelets Plt Clumps, EDTA Large Platelets Giant Platelets Platelet Satelliting Plt Morphology Comment RBC Morphology Dimorphic RBCs Polychromasia Hypochromasia Poikilocytosis Anisocytosis Microcytosis Macrocytosis Spherocytes Pappenheimer Bodies Sickle Cells Target Cells Tear Drop Cells Ovalocytes Helmet Cells [place] Bodies [place] Rings Mendy Cells Bite Cells Crenated Cell Elliptocytes Acanthocytes (Spur) Rouleaux Hemoglobin C Crystals Schistocytes Malaria parasites Robby Bodies Hem Pathologist Commnt Sodium 139 Potassium 3.4 L Chloride 101.6 Carbon Dioxide 21 L Anion Gap 20 BUN 4 L Creatinine 0.3 L Estimated GFR > 60 BUN/Creatinine Ratio 13 Glucose 118 H Lactic Acid Calcium 8.2 L Magnesium Total Creatine Kinase Blood Type Antibody Screen Crossmatch <AMERICA ROMERO - Last Filed: 09/16/19 19:00> Assessment and Plan Patient seen and examined. I have reviewed the advanced practitioner's evaluation, assessment, and plan, and agree with them. I note the following additions: ok to discharge with OPD f/u in AM if continues to improve America Romero M.D. - Patient Problems (1) Acute abdominal pain Current Visit: Yes Status: Acute (2) Diverticulitis Current Visit: Yes Status: Acute Objective - Constitutional Vitals: Temp Pulse Resp BP Pulse Ox 98.5 F 76 18 94/44 100 09/16/19 11:13 09/16/19 11:13 09/16/19 11:13 09/16/19 11:13 09/16/19 11:13 - Labs CBC & Chem 7: 09/16/19 05:13 09/16/19 05:13 Labs: Laboratory Results - last 24 hr 09/15/19 09/16/19 09/16/19 08:00 05:13 05:13 WBC 8.4 RBC 3.55 L Hgb 6.4 L Hct 21.1 L MCV 59 L MCH 18 L MCHC 30 RDW 26.7 H Plt Count 373 Add Manual Diff Complete Total Counted 100 Seg Neuts % (Manual) 88.0 H Band Neutrophils % 0 Lymphocytes % (Manual) 9.0 L Reactive Lymphs % (Man) 0 Monocytes % (Manual) 0 Eosinophils % (Manual) 3.0 Basophils % (Manual) 0 Metamyelocytes % 0 Myelocytes % 0 Promyelocytes % 0 Blast Cells % 0 Nucleated RBC % 2.0 H Seg Neutrophils # Man 7.4 Band Neutrophils # 0.0 Lymphocytes # (Manual) 0.8 L Abs React Lymphs (Man) 0.0 Monocytes # (Manual) 0.0 Eosinophils # (Manual) 0.3 Basophils # (Manual) 0.0 Metamyelocytes # 0.0 Myelocytes # 0.0 Promyelocytes # 0.0 Blast Cells # 0.0 WBC Morphology Not Reportable Hypersegmented Neuts Not Reportable Hyposegmented Neuts Not Reportable Hypogranular Neuts Not Reportable Smudge Cells Not Reportable Toxic Granulation Not Reportable Toxic Vacuolation Not Reportable Dohle Bodies Not Reportable Pelger-Huet Anomaly Not Reportable Ginny Rods Not Reportable Platelet Estimate Consistent w auto Clumped Platelets Not Reportable Plt Clumps, EDTA Not Reportable Large Platelets Not Reportable Giant Platelets Not Reportable Platelet Satelliting Not Reportable Plt Morphology Comment Not Reportable RBC Morphology Not Reportable Dimorphic RBCs Not Reportable Polychromasia Not Reportable Hypochromasia 3+ Poikilocytosis Not Reportable Anisocytosis 3+ Microcytosis 2+ Macrocytosis Not Reportable Spherocytes Not Reportable Pappenheimer Bodies Not Reportable Sickle Cells Not Reportable Target Cells Not Reportable Tear Drop Cells 1+ Ovalocytes Not Reportable Helmet Cells Not Reportable [place] Bodies Not Reportable [place] Rings Not Reportable [place] Cells Not Reportable Bite Cells Not Reportable Crenated Cell Not Reportable Elliptocytes Few Acanthocytes (Spur) Not Reportable Rouleaux Not Reportable Hemoglobin C Crystals Not Reportable Schistocytes Not Reportable Malaria parasites Not Reportable Robby Bodies Not Reportable Hem Pathologist Commnt No Sodium 139 Potassium 3.4 L Chloride 101.6 Carbon Dioxide 21 L Anion Gap 20 BUN 4 L Creatinine 0.3 L Estimated GFR > 60 BUN/Creatinine Ratio 13 Glucose 118 H Calcium 8.2 L Blood Type O POSITIVE Antibody Screen Negative Crossmatch See Detail
[2019-09-16] MEDS: POTASSIUM CHLORIDE 10 MEQ 10 MEQ/100 ML BAG IV SCH ×2 (11:03→12:38)
--- NOTE | 2019-09-16 16:39 | Progress Note ---
Assessment and Plan Assessment and plan: Acute diverticulitis Admitted to med/surg NPO Continue iv fluid Levaquin and Flagyl iv Consulted GI and she was evaluated Anemia due to chronic blood loss from menorrhagia Orders written to transfuse 2 units PRBC yestrerday however only 1 unit given. I Discussed with nurse :second unit PRBC to be transfused today I discussed with Patient the importance of following up with gynecology as an outpatient Full code status. History Interval history: Less abd pain Hospitalist Physical - Physical exam Narrative exam: GEN: Not in acute distress, lying in bed, HEENT: Normocephalic, atraumatic, Neck: supple, No JVD Lungs: Clear to auscultation ,no wheeze, heart;S1 and S2 reg, no murmurs, rubs or gallop Abd:soft, tender LLQ, no rebound tenderness, non distended, normal bowel sounds Ext: No edema, no clubbing, no cyanosis Neuro: Awake,alert, oriented X 3, moves all ext, no focal signs - Constitutional Vitals: Temp Pulse Resp BP Pulse Ox 98.5 F 76 18 94/44 100 09/16/19 11:13 09/16/19 11:13 09/16/19 11:13 09/16/19 11:13 09/16/19 11:13 Results - Labs CBC & Chem 7: 09/16/19 05:13 09/16/19 05:13 Labs: Laboratory Last Values WBC 8.4 K/mm3 (4.5-11.0) 09/16/19 05:13 RBC 3.55 M/mm3 (3.65-5.03) L 09/16/19 05:13 Hgb 6.4 gm/dl (10.1-14.3) L 09/16/19 05:13 Hct 21.1 % (30.3-42.9) L 09/16/19 05:13 MCV 59 fl (79-97) L 09/16/19 05:13 MCH 18 pg (28-32) L 09/16/19 05:13 MCHC 30 % (30-34) 09/16/19 05:13 RDW 26.7 % (13.2-15.2) H 09/16/19 05:13 Plt Count 373 K/mm3 (140-440) 09/16/19 05:13 Lymph % (Auto) 10.9 % (13.4-35.0) L 09/15/19 03:28 [place] % (Auto) 4.3 % (0.0-7.3) 09/15/19 03:28 Eos % (Auto) 2.4 % (0.0-4.3) 09/15/19 03:28 Baso % (Auto) 1.0 % (0.0-1.8) 09/15/19 03:28 Lymph # 1.3 K/mm3 (1.2-5.4) 09/15/19 03:28 [place] # 0.5 K/mm3 (0.0-0.8) 09/15/19 03:28 Eos # 0.3 K/mm3 (0.0-0.4) 09/15/19 03:28 Baso # 0.1 K/mm3 (0.0-0.1) 09/15/19 03:28 Add Manual Diff Complete 09/16/19 05:13 Total Counted 100 09/16/19 05:13 Seg Neutrophils % 81.4 % (40.0-70.0) H 09/15/19 03:28 Seg Neuts % (Manual) 88.0 % (40.0-70.0) H 09/16/19 05:13 Band Neutrophils % 0 % 09/16/19 05:13 Lymphocytes % (Manual) 9.0 % (13.4-35.0) L 09/16/19 05:13 Reactive Lymphs % (Man) 0 % 09/16/19 05:13 Monocytes % (Manual) 0 % (0.0-7.3) 09/16/19 05:13 Eosinophils % (Manual) 3.0 % (0.0-4.3) 09/16/19 05:13 Basophils % (Manual) 0 % (0.0-1.8) 09/16/19 05:13 Metamyelocytes % 0 % 09/16/19 05:13 Myelocytes % 0 % 09/16/19 05:13 Promyelocytes % 0 % 09/16/19 05:13 Blast Cells % 0 % 09/16/19 05:13 Nucleated RBC % 2.0 % (0.0-0.9) H 09/16/19 05:13 Seg Neutrophils # 9.8 K/mm3 (1.8-7.7) H 09/15/19 03:28 Seg Neutrophils # Man 7.4 K/mm3 (1.8-7.7) 09/16/19 05:13 Band Neutrophils # 0.0 K/mm3 09/16/19 05:13 Lymphocytes # (Manual) 0.8 K/mm3 (1.2-5.4) L 09/16/19 05:13 Abs React Lymphs (Man) 0.0 K/mm3 09/16/19 05:13 Monocytes # (Manual) 0.0 K/mm3 (0.0-0.8) 09/16/19 05:13 Eosinophils # (Manual) 0.3 K/mm3 (0.0-0.4) 09/16/19 05:13 Basophils # (Manual) 0.0 K/mm3 (0.0-0.1) 09/16/19 05:13 Metamyelocytes # 0.0 K/mm3 09/16/19 05:13 Myelocytes # 0.0 K/mm3 09/16/19 05:13 Promyelocytes # 0.0 K/mm3 09/16/19 05:13 Blast Cells # 0.0 K/mm3 09/16/19 05:13 WBC Morphology Not Reportable 09/16/19 05:13 Hypersegmented Neuts Not Reportable 09/16/19 05:13 Hyposegmented Neuts Not Reportable 09/16/19 05:13 Hypogranular Neuts Not Reportable 09/16/19 05:13 Smudge Cells Not Reportable 09/16/19 05:13 Toxic Granulation Not Reportable 09/16/19 05:13 Toxic Vacuolation Not Reportable 09/16/19 05:13 Dohle Bodies Not Reportable 09/16/19 05:13 Pelger-Huet Anomaly Not Reportable 09/16/19 05:13 Ginny Rods Not Reportable 09/16/19 05:13 Platelet Estimate Consistent w auto 09/16/19 05:13 Clumped Platelets Not Reportable 09/16/19 05:13 Plt Clumps, EDTA Not Reportable 09/16/19 05:13 Large Platelets Not Reportable 09/16/19 05:13 Giant Platelets Not Reportable 09/16/19 05:13 Platelet Satelliting Not Reportable 09/16/19 05:13 Plt Morphology Comment Not Reportable 09/16/19 05:13 RBC Morphology Not Reportable 09/16/19 05:13 Dimorphic RBCs Not Reportable 09/16/19 05:13 Polychromasia Not Reportable 09/16/19 05:13 Hypochromasia 3+ 09/16/19 05:13 Poikilocytosis Not Reportable 09/16/19 05:13 Anisocytosis 3+ 09/16/19 05:13 Microcytosis 2+ 09/16/19 05:13 Macrocytosis Not Reportable 09/16/19 05:13 Spherocytes Not Reportable 09/16/19 05:13 Pappenheimer Bodies Not Reportable 09/16/19 05:13 Sickle Cells Not Reportable 09/16/19 05:13 Target Cells Not Reportable 09/16/19 05:13 Tear Drop Cells 1+ 09/16/19 05:13 Ovalocytes Not Reportable 09/16/19 05:13 Helmet Cells Not Reportable 09/16/19 05:13 [place] Bodies Not Reportable 09/16/19 05:13 [place] Rings Not Reportable 09/16/19 05:13 [place]y Cells Not Reportable 09/16/19 05:13 Bite Cells Not Reportable 09/16/19 05:13 Crenated Cell Not Reportable 09/16/19 05:13 Elliptocytes Few 09/16/19 05:13 Acanthocytes (Spur) Not Reportable 09/16/19 05:13 Rouleaux Not Reportable 09/16/19 05:13 Hemoglobin C Crystals Not Reportable 09/16/19 05:13 Schistocytes Not Reportable 09/16/19 05:13 Malaria parasites Not Reportable 09/16/19 05:13 Robby Bodies Not Reportable 09/16/19 05:13 Hem Pathologist Commnt No 09/16/19 05:13 Sodium 139 mmol/L (137-145) 09/16/19 05:13 Potassium 3.4 mmol/L (3.6-5.0) L 09/16/19 05:13 Chloride 101.6 mmol/L (98-107) 09/16/19 05:13 Carbon Dioxide 21 mmol/L (22-30) L 09/16/19 05:13 Anion Gap 20 mmol/L 09/16/19 05:13 BUN 4 mg/dL (7-17) L 09/16/19 05:13 Creatinine 0.3 mg/dL (0.7-1.2) L 09/16/19 05:13 Estimated GFR > 60 ml/min 09/16/19 05:13 BUN/Creatinine Ratio 13 % 09/16/19 05:13 Glucose 118 mg/dL (65-100) H 09/16/19 05:13 Lactic Acid 2.00 mmol/L (0.7-2.0) 09/15/19 15:19 Calcium 8.2 mg/dL (8.4-10.2) L 09/16/19 05:13 Magnesium 2.20 mg/dL (1.7-2.3) 09/15/19 09:36 Total Bilirubin 0.70 mg/dL (0.1-1.2) 09/15/19 03:28 AST 15 units/L (5-40) 09/15/19 03:28 ALT 9 units/L (7-56) 09/15/19 03:28 Alkaline Phosphatase 83 units/L (35-129) 09/15/19 03:28 Total Creatine Kinase 23 units/L (30-135) L 09/15/19 09:36 Total Protein 7.2 g/dL (6.3-8.2) 09/15/19 03:28 Albumin 4.5 g/dL (3.9-5) 09/15/19 03:28 Albumin/Globulin Ratio 1.7 % 09/15/19 03:28 Urine Color Straw (Yellow) 09/15/19 03:00 Urine Turbidity Clear (Clear) 09/15/19 03:00 Urine pH 6.0 (5.0-7.0) 09/15/19 03:00 Ur Specific [place] 1.011 (1.003-1.030) 09/15/19 03:00 Urine Protein <15 mg/dl mg/dL (Negative) 09/15/19 03:00 Urine Glucose (UA) Neg mg/dL (Negative) 09/15/19 03:00 Urine Ketones Neg mg/dL (Negative) 09/15/19 03:00 Urine Blood Neg (Negative) 09/15/19 03:00 Urine Nitrite Neg (Negative) 09/15/19 03:00 Urine Bilirubin Neg (Negative) 09/15/19 03:00 Urine Urobilinogen < 2.0 mg/dL (<2.0) 09/15/19 03:00 Ur Leukocyte Esterase Neg (Negative) 09/15/19 03:00 Urine WBC (Auto) < 1.0 /HPF (0.0-6.0) 09/15/19 03:00 Urine RBC (Auto) 1.0 /HPF (0.0-6.0) 09/15/19 03:00 U Epithel Cells (Auto) 1.0 /HPF (0-13.0) 09/15/19 03:00 Urine Mucus Few /HPF 09/15/19 03:00 Urine HCG, Qual Negative (Negative) 09/15/19 03:00 Blood Type O POSITIVE 09/15/19 08:00 Antibody Screen Negative 09/15/19 08:00 Crossmatch See Detail 09/15/19 08:00 Active Medications - Current Medications Current Medications: Generic Name Dose Route Start Last Admin Trade Name Freq PRN Reason Stop Dose Admin Acetaminophen 650 mg 09/15/19 12:57 09/15/19 15:25 Tylenol PO 650 mg Q4H PRN Administration Pain MILD(1-3)/Fever >100.5/MARTINS Dextrose/Sodium Chloride 1,000 mls @ 75 mls/hr 09/15/19 11:00 09/16/19 06:26 D5/0.45ns IV 75 mls/hr DIRECT GILA Administration Metronidazole 500 mg in 100 mls @ 100 mls/hr 09/15/19 14:00 09/16/19 14:48 Flagyl 500 Mg/100 Ml IV 100 mls/hr Q8HR GILA Administration Protocol Levofloxacin/Dextrose 500 mg in 100 mls @ 100 mls/hr 09/16/19 10:00 09/16/19 09:31 Levaquin 500mg/100ml IV 100 mls/hr Q24HR GLIA Administration Protocol Morphine Sulfate 4 mg 09/15/19 16:12 09/16/19 09:46 Morphine IV 4 mg Q4H PRN Administration Pain, Moderate (4-6) Ondansetron HCl 4 mg 09/15/19 12:57 Zofran IV Q8H PRN Nausea And Vomiting Pantoprazole Sodium 40 mg 09/15/19 15:00 09/16/19 09:31 Protonix PO 40 mg QDAY GILA Administration Sodium Chloride 10 ml 09/15/19 22:00 09/16/19 09:32 Sodium Chloride Flush Syringe 10 Ml IV 10 ml BID GILA Administration Sodium Chloride 10 ml 09/15/19 12:57 Sodium Chloride Flush Syringe 10 Ml IV PRN PRN LINE FLUSH
[2019-09-16] MEDS ORDERED: SODIUM CHLORIDE 0.9% 500 ML 500 ML IV SCH (19:00)
[2019-09-16] MEDS: ACETAMINOPHEN 325 MG TAB PO PRN (22:13)
[2019-09-17 01:13] LABS: Hemoglobin 7.4 gm/dl (10.1-14.3)
[2019-09-17] MEDS: D5W/0.45% NACL 1,000 ML IV SCH (03:52)
[2019-09-17] MEDS: MORPHINE 2 MG/1 ML INJ IV PRN (03:56)
[2019-09-17] MEDS: metroNIDAZOLE/NS 500 MG/100 ML 500 MG/100 ML BAG IV SCH (05:41)
[2019-09-17 06:20] LABS: Hematocrit 23.9 % (30.3-42.9); Hemoglobin 7.3 gm/dl (10.1-14.3); Mean Corpuscular HGB Conc 30 % (30-34); Platelet Count 367 K/mm3 (140-440); Red Blood Count 3.83 M/mm3 (3.65-5.03)
[2019-09-17 06:43] LABS: BUN/Creatinine Ratio 17; Blood Urea Nitrogen 5 mg/dL (7-17); Calcium 8.1 mg/dL (8.4-10.2); Hemolysis Index 0
[2019-09-17 06:46] LABS: Mean Corpuscular Volume 63 fl (79-97); Red Cell Distribution Width 29.8 % (13.2-15.2)
--- NOTE | 2019-09-17 09:15 | Gastroenterology Progress Note ---
Assessment and Plan ok to discharge with OPD f/u from GI standpoint as patient tolerating diet - Patient Problems (1) Acute abdominal pain Current Visit: Yes Status: Acute (2) Diverticulitis Current Visit: Yes Status: Acute Subjective Principal diagnosis: diverticulitis, anemia Objective - Constitutional Vitals: Temp Pulse Resp BP Pulse Ox 98.2 F 72 16 107/60 99 09/17/19 05:39 09/17/19 05:39 09/17/19 05:39 09/17/19 05:39 09/17/19 05:39 - Labs CBC & Chem 7: 09/17/19 05:35 09/17/19 05:35 Labs: Laboratory Results - last 24 hr 09/15/19 09/16/19 09/17/19 08:00 05:13 00:40 WBC RBC Hgb 7.4 L Hct 24.0 L MCV MCH MCHC RDW Plt Count Add Manual Diff Complete Total Counted 100 Seg Neuts % (Manual) 88.0 H Band Neutrophils % 0 Lymphocytes % (Manual) 9.0 L Reactive Lymphs % (Man) 0 Monocytes % (Manual) 0 Eosinophils % (Manual) 3.0 Basophils % (Manual) 0 Metamyelocytes % 0 Myelocytes % 0 Promyelocytes % 0 Blast Cells % 0 Nucleated RBC % 2.0 H Seg Neutrophils # Man 7.4 Band Neutrophils # 0.0 Lymphocytes # (Manual) 0.8 L Abs React Lymphs (Man) 0.0 Monocytes # (Manual) 0.0 Eosinophils # (Manual) 0.3 Basophils # (Manual) 0.0 Metamyelocytes # 0.0 Myelocytes # 0.0 Promyelocytes # 0.0 Blast Cells # 0.0 WBC Morphology Not Reportable Hypersegmented Neuts Not Reportable Hyposegmented Neuts Not Reportable Hypogranular Neuts Not Reportable Smudge Cells Not Reportable Toxic Granulation Not Reportable Toxic Vacuolation Not Reportable Dohle Bodies Not Reportable Pelger-Huet Anomaly Not Reportable Ginny Rods Not Reportable Platelet Estimate Consistent w auto Clumped Platelets Not Reportable Plt Clumps, EDTA Not Reportable Large Platelets Not Reportable Giant Platelets Not Reportable Platelet Satelliting Not Reportable Plt Morphology Comment Not Reportable RBC Morphology Not Reportable Dimorphic RBCs Not Reportable Polychromasia Not Reportable Hypochromasia 3+ Poikilocytosis Not Reportable Anisocytosis 3+ Microcytosis 2+ Macrocytosis Not Reportable Spherocytes Not Reportable Pappenheimer Bodies Not Reportable Sickle Cells Not Reportable Target Cells Not Reportable Tear Drop Cells 1+ Ovalocytes Not Reportable Helmet Cells Not Reportable [place] Bodies Not Reportable [place] Rings Not Reportable [place] Cells Not Reportable Bite Cells Not Reportable Crenated Cell Not Reportable Elliptocytes Few Acanthocytes (Spur) Not Reportable Rouleaux Not Reportable Hemoglobin C Crystals Not Reportable Schistocytes Not Reportable Malaria parasites Not Reportable Robby Bodies Not Reportable Hem Pathologist Commnt No Sodium Potassium Chloride Carbon Dioxide Anion Gap BUN Creatinine Estimated GFR BUN/Creatinine Ratio Glucose Calcium Blood Type O POSITIVE Antibody Screen Negative Crossmatch See Detail 09/17/19 09/17/19 05:35 05:35 WBC 7.1 RBC 3.83 Hgb 7.3 L Hct 23.9 L MCV 63 L MCH 19 L MCHC 30 RDW 29.8 H Plt Count 367 Add Manual Diff Total Counted Seg Neuts % (Manual) Band Neutrophils % Lymphocytes % (Manual) Reactive Lymphs % (Man) Monocytes % (Manual) Eosinophils % (Manual) Basophils % (Manual) Metamyelocytes % Myelocytes % Promyelocytes % Blast Cells % Nucleated RBC % Seg Neutrophils # Man Band Neutrophils # Lymphocytes # (Manual) Abs React Lymphs (Man) Monocytes # (Manual) Eosinophils # (Manual) Basophils # (Manual) Metamyelocytes # Myelocytes # Promyelocytes # Blast Cells # WBC Morphology Hypersegmented Neuts Hyposegmented Neuts Hypogranular Neuts Smudge Cells Toxic Granulation Toxic Vacuolation Dohle Bodies Pelger-Huet Anomaly Ginny Rods Platelet Estimate Clumped Platelets Plt Clumps, EDTA Large Platelets Giant Platelets Platelet Satelliting Plt Morphology Comment RBC Morphology Dimorphic RBCs Polychromasia Hypochromasia Poikilocytosis Anisocytosis Microcytosis Macrocytosis Spherocytes Pappenheimer Bodies Sickle Cells Target Cells Tear Drop Cells Ovalocytes Helmet Cells [place] Bodies [place] Rings Mendy Cells Bite Cells Crenated Cell Elliptocytes Acanthocytes (Spur) Rouleaux Hemoglobin C Crystals Schistocytes Malaria parasites Robby Bodies Hem Pathologist Commnt Sodium 139 Potassium 3.8 Chloride 104.3 Carbon Dioxide 21 L Anion Gap 18 BUN 5 L Creatinine 0.3 L Estimated GFR > 60 BUN/Creatinine Ratio 17 Glucose 128 H Calcium 8.1 L Blood Type Antibody Screen Crossmatch
[2019-09-17] MEDS: PANTOPRAZOLE 40 MG TAB PO SCH (11:15)
--- NOTE | 2019-09-17 11:24 | Discharge Summary ---
Providers - Providers Date of Admission: 09/15/19 09:32 Date of discharge: 09/17/19 Attending physician: YVETTE OWENS 09/15/19 10:01 Consult to Physician [CONS] Routine Comment: OVERHEAD PAGED ANITA TO ADV OF CONSULT @[id number] Consulting Provider: AMERICA ROMERO Physician Instructions: Reason For Exam: Acute diverticulitis, severe anemia [facility] Condition: Fair Disposition: - TO HOME OR SELFCARE - Discharge Diagnoses (1) Fibroid uterus Status: Acute (2) Diverticulitis Status: Acute (3) SIRS (systemic inflammatory response syndrome) Status: Acute Core Measure Documentation - Palliative Care Palliative Care/ Comfort Measures: Not Applicable - Core Measures Any of the following diagnoses?: none Exam - Constitutional Vitals: Temp Pulse Resp BP Pulse Ox 98.2 F 72 16 107/60 99 09/17/19 05:39 09/17/19 05:39 09/17/19 05:39 09/17/19 05:39 09/17/19 05:39 Plan Activity: no restrictions Diet: low fat, low cholesterol, low salt Plan of Treatment: 1.Follow up with PCP in 1 week. 2.Follow up with ALICIA Carlin in 1 week. 3.Follow up with Gynecology for Uterine fibroid [facility] - 3-5 Days Prescriptions: metroNIDAZOLE [Flagyl] 500 mg PO Q8HR 5 Days #15 tablet levoFLOXacin [Levaquin TAB] 500 mg PO QDAY 5 Days #5 tablet HYDROcodone/APAP 5-325 [[place] 5/325] 1 each PO Q6HR PRN #20 tablet PRN Reason: Pain
[2019-09-17 13:21] VITALS: BP 112/65
== END 2019-09-17 17:20 | disposition home or self-care (01) ==
LOC: ED 03:07 → 3A 09:32
PROVIDERS: ADMIT Internal Medicine; ATTEND Internal Medicine
DX: K57.92 Diverticulitis of intestine, part unspecified, without perforation or abscess without bleeding (principal); R65.10 Systemic inflammatory response syndrome (SIRS) of non-infectious origin without acute organ dysfunction; D62 Acute posthemorrhagic anemia; N92.0 Excessive and frequent menstruation with regular cycle; R19.7 Diarrhea, unspecified; D21.9 Benign neoplasm of connective and other soft tissue, unspecified
CPT/HCPCS: 36415; 36430; 74176; 80048; 80053; 81001; 81025; 82140; 82270; 82550; 83735; 85007; 85014; 85018; 85025; 85027; 86850; 86900; 86901; 86920; 87040; 93005; 93010; 96361; 96365; 96366; 96367; 96375; 96376; 99291; G0378; J1170; J1956; J2270; J3480; J7030; J7040; P9016